=== PATIENT | female | born 1985 | race Two or more races ===

== ENCOUNTER 2024-07-08 20:14 | Emergency (ER) | payer MEDICAID, OTHER ==
[~2024-07-08] VITALS: Ht 157.5 cm; Wt 88.6 kg
[2024-07-08 20:55] VITALS: BP 149/99; PULSE 83; RESP 18; TEMP 98.5; O2SAT 96
--- NOTE | 2024-07-08 21:46 | ED.PDOC ---
Back pain HPI HPI Comments PATIENT C/O LEFT KNEE PAIN AFTER LIFTING HER MOTHER. PT STATES SHE FELT A "POP." DENIES NUMBNESS OR WEAKNESS Chief Complaint: Lower Extremity Time Seen by MD: 20:18 Reviewed Notes: Nurses Notes, Medications, Allergies Allergies: Coded Allergies: NO KNOWN ALLERGIES (Unverified , 07/08/24) Home Meds Active Scripts Tizanidine Hydrochloride (Tizanidine Hcl) 4 Mg Tab, 4 MG PO BID PRN for 5 Days, #10 TAB Prov:KARLOS GRANADO [facility] [place] 07/08/24 Methylprednisolone (Medrol Dosepak) 4 Mg Martin, 4 MG PO UD for 6 Days, #21 TAB UAD Prov:KALROS GRANADO [facility] [place] 07/08/24 Information Source: Patient Mode of Arrival: Ambulatory Family History Family History: Reviewed,noncontributory to illness, No family hx of Cancer, No family hx of DM, No family hx of Heart nisha, No family hx of HTN, No family hx ofKidney nisha, No family hx of Liver nisha, No family hx of Lung nisha, No family hx of Stroke Social History Smoker: Non-Smoker Alcohol: Denies ETOH Use Drugs: Denies Drug Use Constitutional: denies: chills, diaphoresis, fatigue, fever, malaise, sweats, weakness, others EENTM: denies: blurred vision, double vision, ear bleeding, ear discharge, ear drainage, ear pain, ear ringing, eye pain, eye redness, hearing loss, mouth pain, mouth swelling, nasal discharge, nose bleeding, nose congestion, nose pain, photophobia, tearing, throat pain, throat swelling, voice changes, others Respiratory: denies: cough, hemoptysis, orthopnea, SOB at rest, shortness of breath, SOB with excertion, stridor, wheezing, others Cardiovascular: denies: chest pain, dizzy spells, diaphoresis, Dyspnea on exertion, edema, irregular heart beat, left arm pain, lightheadedness, palpitations, PND, syncope, others Gastrointestinal: denies: abdomen distended, abdominal pain, blood streaked bowels, constipated, diarrhea, dysphagia, difficulty swallowing, hematemesis, melena, nausea, poor appetite, poor fluid intake, rectal bleeding, rectal pain, vomiting, others Genitourinary: denies: abnormal vagina bleeding, burning, dyspareunia, dysuria, flank pain, frequency, hematuria, incontinence, pain, , vagina discharge, urgency, others Neurological: denies: dizziness, fainting, headache, left sided numbness, left sided weakness, numbness, paresthesia, pre-existing deficit, right sided numbness, right sided weakness, seizure, speech problems, tingling, tremors, weakness, others Musculoskeletal: reports: others (LEFT KNEE PAIN AND SWELLING); denies: back pain, gout, joint pain, joint swelling, muscle pain, muscle stiffness, neck pain Integumetry: denies: bruises, change in color, change in hair/nails, dryness, laceration, lesions, lumps, rash, wounds, others Allergic/Immunocompromised: denies: Difficulty Healing, Frequent Infections, Hives, Itching, others Hematologic/Lymphatic: denies: anemia, blood clots, easy bleeding, easy bruising, swollen glands, others Endocrine: denies: excessive hunger, excessive sweating, excessive thirst, excessive urination, flushing, intolerance to cold, intolerance to heat, unexplained weight gain, unexplained weight loss, others Psychiatric: denies: anxiety, bipolar disorder, depression, hopeless, panic disorder, schizophrenia, sleepless, suicidal, others Physical Exam General Appearance: No Apparent Distress, Normal HEENT: Pharynx Normal Neck: Full Range of Motion, Non-Tender Respiratory: Lungs Clear, No Respiratory Distress, Normal Breath Sounds Cardiovascular: No Murmur, Normal Peripheral Pulses, Regular Rate/Rhythm Breast Exam: Deferred Gastrointestinal: No Organomegaly, Non Tender, No Pulsatile Mass, Normal Bowel Sounds, Soft Genitalia: Deferred Pelvic: Deferred Rectal: Deferred Extremities: Normal capillary refill, Normal inspection, Normal range of motion, Non-tender, No pedal edema Musculoskeletal : Location: Left Extremity Location: Knee Apperance: Normal Neurologic: Alert, 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 Was a procedure done?: No Back Pain Differential Dx Differential Diagnosis: Fracture, Musculoskeletal Pain, Strain X-Ray, Labs, Meds, VS Vital Signs Date Time Temp Pulse Resp B/P (MAP) Pulse Ox O2 Delivery O2 Flow Rate FiO2 07/08/24 20:55 Room Air 07/08/24 20:55 98.5 83 18 149/99 (116) 96 98.5 07/08/24 20:55 98.5 83 18 149/99 (116) 96 98.5 Current Medications Medications (Trade) Dose Ordered Sig/Jamie Route Start Time Stop Time Status Last Admin Ketorolac Tromethamine (Toradol Injection) 60 mg ONCE ONCE IM 07/08/24 22:00 07/08/24 22:01 DC 07/08/24 22:00 X-Ray, Labs, Meds, VS Comment RIGHT X-RAY KNEE NEGATIVE FOR ACUTE FRACTURES OSSEOUS LESIONS OR SUBLUXATIONS NO NOTED JOINT EFFUSION. PATIENT PLACED IN KNEE BRACE AND CRUTCHES. PATIENT GIVEN TORADOL 60 MG IM NORCO 5 MG P.O. SHE REPORTS IMPROVEMENT IN PAIN AND FUNCTION REQUESTING DISCHARGE AT THIS TIME. ADVISED TO FOLLOW UP WITH HER PCP ONCE 2 DAYS CONSIDER FURTHER IMAGING SUCH MRI IF SYMPTOMS PERSIST. ER RETURN PRECAUTIONS GIVEN PATIENT INDICATES UNDERSTANDING AGREES WITH DISCHARGE PLAN OF CARE. Time of 1ST Reevaluation: 21:46 Reevaluation 1ST: Unchanged Time of 2ND Reevaluation: 22:52 Reevaluation 2ND: Improved Patient Education/Counseling: Diagnosis, Treatment, Prognosis, Need For Follow Up Family Education/Counseling: No Family Present Departure 1 Departure Time of Disposition: 22:57 Impression: Primary Impression: Strain of knee and leg, left Qualified Codes: S86.912A - Strain of unspecified muscle(s) and tendon(s) at lower leg level, left leg, initial encounter Disposition: HOME / SELF CARE / HOMELESS Condition: Stable e-Prescriptions Tizanidine Hydrochloride (Tizanidine Hcl) 4 Mg Tab 4 MG PO BID PRN for 5 Days, #10 TAB Prov: KARLOS GRANADO 07/08/24 Methylprednisolone (Medrol Dosepak) 4 Mg Martin 4 MG PO UD for 6 Days, #21 TAB UAD Prov: KARLOS GRANADO 07/08/24 Discharged With: Self Critical Care Note Critical Care Time?: No Stability Stability form required: KARLOS Guerra Jul 08, 2024 21:46
[2024-07-08] MEDS: KETOROLAC TROMETH 60MG/2ML VIAL IM ONE (22:00)
--- NOTE | 2024-07-08 22:39 | DVH ---
CLINICAL INDICATION: injury/pain/swelling TECHNIQUE: 3 radiographic views of the left knee were obtained. Comparison: None FINDINGS/IMPRESSION: There is no evidence of acute fracture or dislocation. The visualized joint space is well maintained. The alignment is anatomical. There is no radiopaque foreign body.
[2024-07-08] MEDS ORDERED: TIZA-142 PO (22:59)
[2024-07-08] MEDS ORDERED: METH4PAK PO (22:59)
== END 2024-07-08 23:20 | disposition home or self-care (01) ==
LOC: ER 20:14
DX: S86.812A Strain of other muscle(s) and tendon(s) at lower leg level, left leg, initial encounter (principal); X50.9XXA Other and unspecified overexertion or strenuous movements or postures, initial encounter; Y93.89 Activity, other specified; Y92.89 Other specified places as the place of occurrence of the external cause; Y99.8 Other external cause status
CPT/HCPCS: 73562; 96372; 99283; J1885

== ENCOUNTER 2024-10-17 10:15 | Emergency (ER) | payer MEDICAID ==
[~2024-10-17] VITALS: Ht 157.5 cm; Wt 76.7 kg
[2024-10-17 10:24] VITALS: TEMP 99.4
--- NOTE | 2024-10-17 10:31 | ED.PDOC ---
History of Present Illness HPI Comments This is a 39-year-old female who comes in with chief complaint of withdrawals. The patient states that she takes baclofen as well as Percocet for her chronic back pain. She states that her last dose of medication was this past and she states that someone then stool her medication. She denies any vomiting but is having some nausea as well as some tremors. The patient also states that she is having some insomnia. The patient denies any chest pain or shortness for breath. There has been no fever or chills. The patient was able to ambulate into the emergency department's. She states that she did not make a police report out yet so her pain management doctor will not give her any medications at this time. Chief Complaint: Withdrawal Time Seen by MD: 10:17 Reviewed Notes: Nurses Notes, Medications, Allergies (NKDA) Allergies: Coded Allergies: NO KNOWN ALLERGIES (Unverified , 07/08/24) Past Medical History PAST MEDICAL HISTORY: HTN Surgical History: Appendectomy, Hysterectomy GAMBLING BOX PERSON History: No Pertinent GAMBLING BOX PERSON History Family History Family History: Family hx of DM Social History Smoker: Non-Smoker Alcohol: Denies ETOH Use Drugs: Marijuana Lives In: Home Constitutional: denies: chills, diaphoresis, fatigue, fever, malaise, sweats, weakness, others EENTM: denies: blurred vision, double vision, ear bleeding, ear discharge, ear drainage, ear pain, ear ringing, eye pain, eye redness, hearing loss, mouth pain, mouth swelling, nasal discharge, nose bleeding, nose congestion, nose pain, photophobia, tearing, throat pain, throat swelling, voice changes, others Respiratory: denies: cough, hemoptysis, orthopnea, SOB at rest, shortness of breath, SOB with excertion, stridor, wheezing, others Cardiovascular: denies: chest pain, dizzy spells, diaphoresis, Dyspnea on exertion, edema, irregular heart beat, left arm pain, lightheadedness, palpitations, PND, syncope, others Gastrointestinal: denies: abdomen distended, abdominal pain, blood streaked bowels, constipated, diarrhea, dysphagia, difficulty swallowing, hematemesis, melena, nausea, poor appetite, poor fluid intake, rectal bleeding, rectal pain, vomiting, others Genitourinary: denies: abnormal vagina bleeding, burning, dyspareunia, dysuria, flank pain, frequency, hematuria, incontinence, pain, , vagina dischar ge, urgency, others Neurological: denies: dizziness, fainting, headache, left sided numbness, left sided weakness, numbness, paresthesia, pre-existing deficit, right sided numbness, right sided weakness, seizure, speech problems, tingling, tremors, weakness, others Musculoskeletal: denies: back pain, gout, joint pain, joint swelling, muscle pain, muscle stiffness, neck pain, others Integumetry: denies: bruises, change in color, change in hair/nails, dryness, laceration, lesions, lumps, rash, wounds, others Allergic/Immunocompromised: denies: Difficulty Healing, Frequent Infections, Hives, Itching, others Hematologic/Lymphatic: denies: anemia, blood clots, easy bleeding, easy bruising, swollen glands, others Endocrine: denies: excessive hunger, excessive sweating, excessive thirst, excessive urination, flushing, intolerance to cold, intolerance to heat, unexplained weight gain, unexplained weight loss, others Psychiatric: denies: anxiety, bipolar disorder, depression, hopeless, panic disorder, schizophrenia, sleepless, suicidal, others Physical Exam General Appearance: No Apparent Distress HEENT: Normal ENT Inspection, Pharynx Normal, TMs Normal Neck: Full Range of Motion, Non-Tender, Normal, Normal Inspection Respiratory: Chest Non-Tender, Lungs Clear, No Accessory Muscle Use, No Respiratory Distress, Normal Breath Sounds Cardiovascular: No Edema, No JVD, No Murmur, No Gallop, Normal Peripheral Pulses, Regular Rate/Rhythm Breast Exam: Deferred Gastrointestinal: No Organomegaly, Non Tender, No Pulsatile Mass, Normal Bowel Sounds, Soft Genitalia: Deferred Pelvic: Deferred Rectal: Deferred Extremities: No calf tenderness, Normal capillary refill, Normal inspection, Normal range of motion, Non-tender, No pedal edema Musculoskeletal : Apperance: Normal Neurologic: Alert, 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 Was a procedure done?: No Differential Dx Considerations may include: Hypertensive urgency, medication withdrawal, X-Ray, Labs, Meds, VS Vital Signs Date Time Temp Pulse Resp B/P (MAP) Pulse Ox O2 Delivery O2 Flow Rate FiO2 10/17/24 10:24 99.4 125 18 173/100 97 99.4 The patient came in with an elevated blood pressure and was given clonidine 0.2 mg by mouth The patient was also given Ativan p.o. for the withdrawal symptoms The patient is being discharged on Xanax The patient will return to the emergency department's the condition worsens. Time of 1ST Reevaluation: 10:39 Reevaluation 1ST: Improved Patient Education/Counseling: Diagnosis, Treatment, Prognosis, Need For Follow Up Family Education/Counseling: No Family Present SEPSIS Sepsis Screen Vital Signs Date Time Temp Pulse Resp B/P (MAP) Pulse Ox O2 Delivery O2 Flow Rate FiO2 10/17/24 10:24 99.4 125 18 173/100 97 99.4 Departure 1 Departure Time of Disposition: 10:39 Impression: Primary Impression: Medication withdrawal Qualified Codes: F11.93 - Opioid use, unspecified with withdrawal Additional Impression: Hypertensive urgency Disposition: 01 HOME / SELF CARE / HOMELESS Condition: Fair Discharged With: Self Critical Care Note Critical Care Time?: No Stability Stability form required: No Heart Score Heart Score: Heart Score Response (Comments) Value History N/A 0 EKG N/A 0 Age N/A 0 Risk Factors N/A 0 Troponin N/A 0 Total 0 FILIBERTO MOSELEY MD Oct 17, 2024 10:31
[2024-10-17] MEDS ORDERED: ALPR0.5T PO (10:43)
[2024-10-17] MEDS: LORazepam 0.5 MG TAB PO ONE (12:44)
[2024-10-17 12:45] VITALS: BP 156/92; PULSE 91; RESP 16; O2SAT 100
[2024-10-17] MEDS: LORazepam 0.5 MG TAB ONE (12:57)
== END 2024-10-17 12:56 | disposition home or self-care (01) ==
LOC: ER 10:15
DX: I16.0 Hypertensive urgency (principal); F11.93 Opioid use, unspecified with withdrawal; I10 Essential (primary) hypertension; G89.29 Other chronic pain; Z90.710 Acquired absence of both cervix and uterus; Z90.49 Acquired absence of other specified parts of digestive tract

== ENCOUNTER 2024-10-20 01:55 | Emergency (ER) | payer MEDICAID ==
[~2024-10-20] VITALS: Ht 157.5 cm; Wt 83.2 kg
[~2024-10-20 01:55] MED LIST: ALPR0.5T PO
[2024-10-20 01:56] VITALS: TEMP 98.1
[2024-10-20] MEDS ORDERED: ZOFR4T PO (02:26)
[2024-10-20] MEDS ORDERED: BUPR8MIS SL (02:26)
[2024-10-20] MEDS ORDERED: CLON0.1T PO (02:26)
--- NOTE | 2024-10-20 02:26 | ED.PDOC ---
History of Present Illness HPI Comments 39 year old Obese female with a Hx of HTN and Marijuana use presents to the ED for the c/c of Withdraw symptoms from Percocet/Baclofen associated to N/D, Insomnia, Shaking, and Tachycardia. Pt states that her symptoms started 5x days ago after she "lost her medication". Pt notes on taking Percocet/Baclofen for years, due to chronic back, and knee pain. Pt is noted to have been seen her at [facility] 2x days ago and was prescribed Xanax, pt notes that she needs something for her withdraw and not Anxiety. No other associated symptoms, modifiers, recent injuries or sick contacts present at this time. Chief Complaint: Withdrawal Time Seen by MD: 02:21 Reviewed Notes: Nurses Notes, Medications, Allergies Allergies: Coded Allergies: NO KNOWN ALLERGIES (Unverified , 07/08/24) Home Meds Active Scripts Ondansetron Odt 4MG Tab (ZOFRAN PO) 4 Mg Tb, 4 MG PO Q6HP PRN, #30 TAB ODT TAB-DISSOLVE IN MOUTH, THEN SWALLOW Prov:TERESSA BAILEY MD 10/20/24 Clonidine Hydrochloride (Clonidine Hcl) 0.1 Mg Tab, 1 TAB PO BID PRN, #30 TAB 1 Refill Prov:TERESSA BAILEY MD 10/20/24 Buprenorphine Hcl-Naloxone Hcl (Suboxone) 1 Mis Mis, 1 STRIP SL DAILY PRN, #30 STRIP Prov:TERESSA BAILEY MD 10/20/24 Alprazolam (Xanax) 0.5 Mg Tb, 1 TAB PO DAILY, #30 TAB Prov:FILIBERTO MOSELEY MD 10/17/24 Information Source: Patient Mode of Arrival: Ambulatory Severity: Moderate Timing: Days Duration: Intermittent, Days Prehospital treatment: None Medication Refill: Lost Medication, Lost Prescription Past Medical History PAST MEDICAL HISTORY: HTN Surgical History: Appendectomy, Hysterectomy LITIGATION CLAIM REPRESENTATIVE History: No Pertinent LITIGATION CLAIM REPRESENTATIVE History Family History Family History: Family hx of DM Social History Smoker: Non-Smoker Alcohol: Denies ETOH Use Drugs: Marijuana Lives In: Home Constitutional: denies: chills, diaphoresis, fatigue, fever, malaise, sweats, weakness, others EENTM: denies: blurred vision, double vision, ear bleeding, ear discharge, ear drainage, ear pain, ear ringing, eye pain, eye redness, hearing loss, mouth pain, mouth swelling, nasal discharge, nose bleeding, nose congestion, nose pain, photophobia, tearing, throat pain, throat swelling, voice changes, others Respiratory: denies: cough, hemoptysis, orthopnea, SOB at rest, shortness of breath, SOB with excertion, stridor, wheezing, others Cardiovascular: denies: chest pain, dizzy spells, diaphoresis, Dyspnea on exertion, edema, irregular heart beat, left arm pain, lightheadedness, palpitations, PND, syncope, others Gastrointestinal: reports: diarrhea, nausea; denies: abdomen distended, abdominal pain, blood streaked bowels, constipated, dysphagia, difficulty swallowing, hematemesis, melena, poor appetite, poor fluid intake, rectal ble eding, rectal pain, vomiting, others Genitourinary: denies: abnormal vagina bleeding, burning, dyspareunia, dysuria, flank pain, frequency, hematuria, incontinence, pain, , vagina discharge, urgency, others Neurological: denies: dizziness, fainting, headache, left sided numbness, left sided weakness, numbness, paresthesia, pre-existing deficit, right sided numbness, right sided weakness, seizure, speech problems, tingling, tremors, weakness, others Musculoskeletal: denies: back pain, gout, joint pain, joint swelling, muscle pain, muscle stiffness, neck pain, others Integumetry: denies: bruises, change in color, change in hair/nails, dryness, laceration, lesions, lumps, rash, wounds, others Allergic/Immunocompromised: denies: Difficulty Healing, Frequent Infections, Hi ves, Itching, others Hematologic/Lymphatic: denies: anemia, blood clots, easy bleeding, easy bruising, swollen glands, others Endocrine: denies: excessive hunger, excessive sweating, excessive thirst, excessive urination, flushing, intolerance to cold, intolerance to heat, unexplained weight gain, unexplained weight loss, others Psychiatric: denies: anxiety, bipolar disorder, depression, hopeless, panic disorder, schizophrenia, sleepless, suicidal, others All Other Systems: Reviewed and Negative Physical Exam General Appearance: Mild Distress, Normal, Obese HEENT: Normal ENT Inspection, Pharynx Normal, TMs Normal Neck: Full Range of Motion, Non-Tender, Normal, Normal Inspection Respiratory: Chest Non-Tender, Lungs Clear, No Accessory Muscle Use, No Respiratory Distress, Normal Breath Sounds Cardiovascular: No Edema, No JVD, No Murmur, No Gallop, Normal Peripheral Pulses, Regular Rate/Rhythm Breast Exam: Deferred Gastrointestinal: No Organomegaly, Non Tender, No Pulsatile Mass, Normal Bowel Sounds, Soft Genitalia: Deferred Pelvic: Deferred Rectal: Deferred Extremities: No calf tenderness, Normal capillary refill, Normal inspection, Normal range of motion, Non-tender, No pedal edema Musculoskeletal : Apperance: Normal Neurologic: Alert, No Motor Deficits, Normal Affect, Normal Mood, No Sensory Deficits Cerebellar Function: Normal Reflexes: Normal Skin: Dry, Normal Color, Warm Lymphatic: No Adenopathy Was a procedure done? Was a procedure done?: No Differential Dx Considerations may include: Differential diagnosis includes but is not limited to: coronary ischemia, dehydration, sepsis, electrolyte abnormality, symptomatic anemia, hypovolemia and others X-Ray, Labs, Meds, VS Vital Signs Date Time Temp Pulse Resp B/P (MAP) Pulse Ox O2 Delivery O2 Flow Rate FiO2 10/20/24 02:56 141/89 10/20/24 02:56 Room Air* 0 21 10/20/24 02:47 124 20 141/89 (106) 96 10/20/24 02:14 120 10/20/24 01:56 98.1 130 20 150/104 98 98.1 Current Medications Medications (Trade) Dose Ordered Sig/Jamie Route Start Time Stop Time Status Last Admin Clonidine HCl (Catapres Tablet) 0.1 mg ONCE ONCE PO 10/20/24 02:30 10/20/24 02:31 DC 10/20/24 02:56 Ondansetron HCl (Zofran Po) 8 mg ONCE ONCE PO 10/20/24 02:30 10/20/24 02:31 DC 10/20/24 02:56 Loperamide HCl (Imodium Capsule) 4 mg ONCE ONCE PO 10/20/24 02:30 10/20/24 02:31 DC 10/20/24 02:56 Time of 1ST Reevaluation: 02:51 Reevaluation 1ST: Unchanged Patient Education/Counseling: Diagnosis, Treatment, Need For Follow Up Family Education/Counseling: No Family Present SEPSIS Sepsis Screen Date sepsis recognized/suspect: Oct 20, 2024 Time Sepsis recognized/suspect: 0202 Recent Procedure: No On Antibiotic Therapy: No Respiratory Rate >20: No Heart Rate >90: Yes Temp<36 C (96.8 F) or >38.3 C: No SBP <90 or MAP <65 mmHG: No New Acute Mental Status Change: No Is the patient on CPAP, BIPAP,: No Vital Signs Date Time Temp Pulse Resp B/P (MAP) Pulse Ox O2 Delivery O2 Flow Rate FiO2 10/20/24 02:56 141/89 10/20/24 02:56 Room Air* 0 21 10/20/24 02:47 124 20 141/89 (106) 96 10/20/24 02:14 120 10/20/24 01:56 98.1 130 20 150/104 98 98.1 Medications Medications Dose Ordered Sig/Jamie Route Start Time Stop Time Status Last Admin Dose Admin Clonidine HCl 0.1 mg ONCE ONCE PO 10/20/24 02:30 10/20/24 02:31 DC 10/20/24 02:56 Loperamide HCl 4 mg ONCE ONCE PO 10/20/24 02:30 10/20/24 02:31 DC 10/20/24 02:56 Ondansetron HCl 8 mg ONCE ONCE PO 10/20/24 02:30 10/20/24 02:31 DC 10/20/24 02:56 Departure 1 Departure Time of Disposition: 04:30 Impression: Primary Impression: Hypertensive urgency Additional Impression: Opiate withdrawal Disposition: 01 HOME / SELF CARE / HOMELESS Condition: Stable e-Prescriptions Ondansetron Odt 4MG Tab (ZOFRAN PO) 4 Mg Tb 4 MG PO Q6HP PRN, #30 TAB ODT TAB-DISSOLVE IN MOUTH, THEN SWALLOW Prov: TERESSA BAILEY MD 10/20/24 Clonidine Hydrochloride (Clonidine Hcl) 0.1 Mg Tab 1 TAB PO BID PRN, #30 TAB 1 Refill Prov: TERESSA BAILEY MD 10/20/24 Buprenorphine Hcl-Naloxone Hcl (Suboxone) 1 Mis Mis 1 STRIP SL DAILY PRN, #30 STRIP Prov: TERESSA BAILEY MD 10/20/24 Discharged With: Self Critical Care Note Critical Care Time?: No Stability Stability form required: No Heart Score Heart Score: Heart Score Response (Comments) Value History N/A 0 EKG N/A 0 Age N/A 0 Risk Factors N/A 0 Troponin N/A 0 Total 0 I personally scribed for TERESSA BAILEY MD ([email or web address]) on 10/20/24 at 02:26. Electronically submitted by Ebenezer Lopez ([email or web address]). TERESSA BAILEY MD Oct 20, 2024 02:26
[2024-10-20 02:47] VITALS: BP 141/89; PULSE 124; RESP 20; O2SAT 96
[2024-10-20] MEDS: ONDANSETRON ODT 4 MG TAB PO ONE (02:56)
[2024-10-20] MEDS: LOPERAMIDE HCL 2 MG CAP/TAB PO ONE (02:56)
--- NOTE | 2024-10-27 14:50 | ECG ---
[facility] Test Date: 2024-10-20 Test Time: 02:14:59 Pat Name: FAY VERDIN Department: ER Room: Gender: F Insulation Worker Furnace Installer: : 1985 Requested By: TERESSA BAILEY Order Number: [id number] Reading MD: Alex Shah Measurements Intervals [place] Rate: 120 P: 61 MT: 142 QRS: 68 QRSD: 90 T: 41 QT: 314 QTc: 444 Interpretive Statements Sinus tachycardia Consider right atrial enlargement Electronically Signed On 10-30-2024 16:59:00 PDT by Alex Shah Please click the below link to view image of tracing.
--- NOTE | 2024-10-27 14:50 | ECG ---
[facility] Test Date: 2024-10-20 Test Time: 02:14:12 Pat Name: FAY VERDIN Department: ER Room: Gender: F [employer] Caretaker: JODY : 1985 Requested By: TERESSA BAILEY Order Number: [id number] Reading MD: Alex Shah Measurements Intervals [employer] Rate: 107 P: 56 [place]: 143 QRS: 65 QRSD: 87 T: 42 QT: 314 QTc: 419 Interpretive Statements Sinus tachycardia Electronically Signed On 10-30-2024 16:58:50 PDT by Alex Shah Please click the below link to view image of tracing.
== END 2024-10-20 02:58 | disposition home or self-care (01) ==
LOC: ER 01:55
DX: I16.0 Hypertensive urgency (principal); F11.23 Opioid dependence with withdrawal; I10 Essential (primary) hypertension; G47.00 Insomnia, unspecified; Z90.710 Acquired absence of both cervix and uterus; Z90.49 Acquired absence of other specified parts of digestive tract; Z79.899 Other long term (current) drug therapy
CPT/HCPCS: 93005; 99284; Q0162